=== PATIENT | male | born 1955 | race Two or more races ===

== ENCOUNTER 2023-04-27 12:05 | Emergency (ER) | payer OTHER ==
[~2023-04-27] VITALS: Ht 160 cm; Wt 67.4 kg
[2023-04-27] MEDS ORDERED: ONDANSETRON ODT 4 MG TAB PO ONE (12:45)
[2023-04-27 12:57] LABS: Urine WBC None Seen /hpf (0 - 3)
[2023-04-27 13:00] VITALS: BP 142/75; PULSE 66; RESP 17; TEMP 98; O2SAT 100
[2023-04-27 13:10] LABS: Urine Bacteria NONE SEEN /hpf (None Seen); Urine Blood Negative /uL (Negative); Urine Clarity Clear (Clear); Urine Color Yellow (Yellow); Urine Protein, UAD Negative (Negative); Urine Specific Gravity 1.011 (1.001-1.035); Urine Urobilinogen Normal (Negative)
[2023-04-27 13:11] LABS: Basophils # (auto) 0 10 ^3/uL (0-0.2); Basophils % (auto) 0.2 % (0.0-2.0); Eosinophils # (auto) 0 10 ^3/uL (0-0.8); Eosinophils % (auto) 0.3 % (0.0-7.0); Hematocrit 45.7 % (41.0-53.0); Hemoglobin 15.5 g/dL (13.5-17.5); Lymphocytes # (auto) 1.2 10 ^3/uL (0.4-5.4); Lymphocytes % (auto) 11.3 % (10.0-50.0); Mean Corpuscular Hemoglobin 31.5 pg (28.0-32.0); Mean Corpuscular Hgb Conc. 33.9 g/dL (32.0-36.0); Monocytes # (auto) 0.6 10 ^3/uL (0-1.3); Monocytes % (auto) 5.7 % (0.0-12.0); Neutrophils # (auto) 8.7 10 ^3/uL (1.6-8.6); Neutrophils % (auto) 82.5 % (37.0-80.0); Red Blood Cells 4.92 10^6/uL (4.5-5.90); Red Cell Distribution Width 12.9 % (11.8-14.3); White Blood Cell 10.5 10^3/uL (4.4-10.8)
[2023-04-27 14:01] LABS: Alanine Aminotransferase 24 U/L (7-40); Albumin 4.1 g/dL (3.2-4.8); Alkaline Phosphatase 84 U/L (46-116); Anion Gap 7 (5-15); Aspartate Aminotransferase 21 U/L (13-40); BUN/Creatinine Ratio 12.4 (10.0-20.0); Bilirubin, Total 1.2 mg/dL (0.2-1.0); Blood Urea Nitrogen 13 mg/dL (9-23); Calcium 9.1 mg/dL (8.7-10.4); Carbon Dioxide 27 mmol/L (20-30); Chloride 103 mmol/L (98-107); Glucose 158 mg/dL (74-106); Lipase 37 U/L (12-53); Potassium 3.8 mmol/L (3.5-5.1); Sodium 137 mmol/L (136-145); Total Protein 6.9 g/dL (5.7-8.2)
[2023-04-27] MEDS ORDERED: ZOFR4T PO (16:34)
== END 2023-04-27 16:51 | disposition home or self-care (01) ==
LOC: ER 12:05
DX: B34.9 Viral infection, unspecified (principal); R11.0 Nausea; E78.5 Hyperlipidemia, unspecified
CPT/HCPCS: 36415; 74176; 80053; 81001; 83690; 85025; 99284; Q0162; 93005

== ENCOUNTER 2023-10-02 09:47 | Emergency (ER) | payer MEDICAID ==
[~2023-10-02] VITALS: Ht 167.6 cm; Wt 65.6 kg
[~2023-10-02 09:47] MED LIST: ZOFR4T PO
[2023-10-02] MEDS ORDERED: CEPH500C PO (10:33)
[2023-10-02 10:36] VITALS: BP 148/57; PULSE 65; RESP 16; TEMP 97.8; O2SAT 98
== END 2023-10-02 10:54 | disposition home or self-care (01) ==
LOC: ER 09:47
DX: S30.812A Abrasion of penis, initial encounter (principal); E78.5 Hyperlipidemia, unspecified; Z79.899 Other long term (current) drug therapy; W01.0XXA Fall on same level from slipping, tripping and stumbling without subsequent striking against object, initial encounter; Y93.89 Activity, other specified; Y92.89 Other specified places as the place of occurrence of the external cause; Y99.8 Other external cause status

== ENCOUNTER 2024-12-11 22:10 | Inpatient (IN) | payer MEDICAID ==
[~2024-12-11] VITALS: Ht 157.5 cm; Wt 61.1 kg
[~2024-12-11 22:10] MED LIST changes: +CEPH500C PO
--- NOTE | 2024-12-11 22:32 | ED.PDOC ---
History of Present Illness HPI Comments 69-year-old male presents with a chief complaint of chest pain. Patient states that his pain was localized to his sternal region, nonradiating, no alleviating factors, no exertion factors. Patient states that the pain has gone away since arriving to the ER. Patient states that he has not had a chest pain work up before and is anxious. Patient denies recent stress test. Chief Complaint: Chest Pain Time Seen by MD: 22:25 Primary Care Provider: NONE Reviewed Notes: Medications, Allergies Allergies: Coded Allergies: No Known Drug Allergy (Verified Allergy, Unknown, 04/27/23) Home Meds Active Scripts Cephalexin Monohydrate (Cephalexin) 500 Mg Cap, 1 CAP PO TID, #30 CAP Prov:HERNANDO PHILIPPE 10/02/23 Ondansetron Odt 4MG Tab (ZOFRAN PO) 4 Mg Tb, 4 MG PO Q8HP PRN for 5 Days, #15 TAB ODT TAB-DISSOLVE IN MOUTH, THEN SWALLOW Prov:CARA VELIZ MD 04/27/23 Information Source: Patient Mode of Arrival: Ambulatory Severity: Moderate Timing: Hours Duration: Intermittent Prehospital treatment: None Past Medical History PAST MEDICAL HISTORY: High Lipids Surgical History: Denies all surgeries Family History Family History: Reviewed,noncontributory to illness, Family hx of DM Social History Smoker: Non-Smoker Alcohol: Denies ETOH Use Drugs: Denies Drug Use Lives In: Home Constitutional: denies: chills, diaphoresis, fatigue, fever, malaise, sweats, weakness, others EENTM: denies: blurred vision, double vision, ear bleeding, ear discharge, ear drainage, ear pain, ear ringing, eye pain, eye redness, hearing loss, mouth pain, mouth swelling, nasal discharge, nose bleeding, nose congestion, nose pain, photophobia, tearing, throat pain, throat swelling, voice changes, others Respiratory: denies: cough, hemoptysis, orthopnea, SOB at rest, shortness of breath, SOB with excertion, stridor, wheezing, others Cardiovascular: reports: chest pain; denies: dizzy spells, diaphoresis, Dyspnea on exertion, edema, irregular heart beat, left arm pain, lightheadedness, palpitations, PND, syncope, others Gastrointestinal: denies: abdomen distended, abdominal pain, blood streaked bowels, constipated, diarrhea, dysphagia, difficulty swallowing, hematemesis, melena, nausea, poor appetite, poor fluid intake, rectal bleeding, rectal pain, vomiting, others Genitourinary: denies: burning, dysuria, flank pain, frequency, hematuria, incontinence, penile discharge, penile sore, pain, testicle pain, testicle swelling, urgency, others Neurological: denies: dizziness, fainting, headache, left sided numbness, left sided weakness, numbness, paresthesia, pre-existing deficit, right sided numbness, right sided weakness, seizure, speech problems, tingling, tremors, weakness, others Musculoskeletal: denies: back pain, gout, joint pain, joint swelling, muscle pain, muscle stiffness, neck pain, others Integumetry: denies: bruises, change in color, change in hair/nails, dryness, laceration, lesions, lumps, rash, wounds, others Allergic/Immunocompromised: denies: Difficulty Healing, Frequent Infections, Hives, Itching, others Hematologic/Lymphatic: denies: anemia, blood clots, easy bleeding, easy bruising, swollen glands, others Endocrine: denies: excessive hunger, excessive sweating, excessive thirst, excessive urination, flushing, intolerance to cold, intolerance to heat, unexplained weight gain, unexplained weight loss, others Psychiatric: denies: anxiety, bipolar disorder, depression, hopeless, panic disorder, schizophrenia, sleepless, suicidal, others All Other Systems: Reviewed and Negative Physical Exam General Appearance: No Apparent Distress, Normal HEENT: Normal ENT Inspection, Pharynx Normal, TMs Normal Neck: Full Range of Motion, Non-Tender, Normal, Normal Inspection Respiratory: Chest Non-Tender, Lungs Clear, No Accessory Muscle Use, No Respiratory Distress, Normal Breath Sounds Cardiovascular: No Edema, No JVD, No Murmur, No Gallop, Normal Peripheral Pulses, Regular Rate/Rhythm Breast Exam: Deferred Gastrointestinal: No Organomegaly, Non Tender, No Pulsatile Mass, Normal Bowel Sounds, Soft Genitalia: Deferred Pelvic: Deferred Rectal: Deferred Extremities: No calf tenderness, Normal capillary refill, Normal inspection, Normal range of motion, Non-tender, No pedal edema Musculoskeletal : Apperance: Normal Neurologic: Alert, courtesy clerk II-XII nml as Tested, No Motor Deficits, Normal Affect, Normal Mood, No Sensory Deficits Cerebellar Function: Normal Reflexes: Normal Skin: Dry, Normal Color, Warm Lymphatic: No Adenopathy Was a procedure done? Was a procedure done?: No Differential Dx Considerations may include: ACS, gastritis, 2, viral syndrome, musculoskeletal strain X-Ray, Labs, Meds, VS Vital Signs Date Time Temp Pulse Resp B/P (MAP) Pulse Ox O2 Delivery O2 Flow Rate FiO2 12/11/24 22:18 65 12/11/24 22:10 98.2 72 18 133/59 (83) 97 98.2 Lab Test 12/11/24 23:25 12/11/24 22:24 Range/Units Troponin I High Sensitivity Pending 3 L </=54 ng/L White Blood Count 5.3 4.4-10.8 10^3/uL Red Blood Count 4.73 4.5-5.90 10^6/uL Hemoglobin 14.6 13.5-17.5 g/dL Hematocrit 43.5 41.0-53.0 % Mean Corpuscular Volume 92.0 80.0-100.0 fL Mean Corpuscular Hemoglobin 30.9 28.0-32.0 pg Mean Corpuscular Hemoglobin Concent 33.6 32.0-36.0 g/dL Red Cell Distribution Width 13.6 11.8-14.3 % Platelet Count 157 140-450 10^3/uL Mean Platelet Volume 9.0 6.9-10.8 fL Neutrophils (%) (Auto) 36.3 L 37.0-80.0 % Lymphocytes (%) (Auto) 49.5 10.0-50.0 % Monocytes (%) (Auto) 11.6 0.0-12.0 % Eosinophils (%) (Auto) 2.0 0.0-7.0 % Basophils (%) (Auto) 0.6 0.0-2.0 % Neutrophils # (Auto) 1.9 1.6-8.6 10 ^3/uL Lymphocytes # (Auto) 2.6 0.4-5.4 10 ^3/uL Monocytes # (Auto) 0.6 0-1.3 10 ^3/uL Eosinophils # (Auto) 0.1 0-0.8 10 ^3/uL Basophils # (Auto) 0 0-0.2 10 ^3/uL Nucleated Red Blood Cells 0.1 % Sodium Level 143 136-145 mmol/L Potassium Level 4.0 3.5-5.1 mmol/L Chloride Level 108 H 98-107 mmol/L Carbon Dioxide Level 26 20-31 mmol/L Anion Gap 9 5-15 Blood Urea Nitrogen 15 9-23 mg/dL Creatinine 0.93 0.700-1.30 mg/dL Glomerular Filtration Rate Calc 89 >90 mL/min BUN/Creatinine Ratio 16.1 10.0-20.0 Serum Glucose 155 H 74-106 mg/dL Calcium Level 9.4 8.7-10.4 mg/dL Time of 1ST Reevaluation: 22:55 Reevaluation 1ST: Unchanged Patient Education/Counseling: Diagnosis, Treatment Family Education/Counseling: No Family Present Departure 1 Departure Time of Disposition: 23:49 (Patient presented with chest pain that was concerning for possible STEMI, ACS, PE, Pneumonia, Muscle Strain, COPD, Dissection. Data: 1. I ordered and reviewed the result of at least 3 labs including a CBC, BMP, and Troponin. 2. I independently interpreted the following tests: EKG which shows normal sinus and Chest X-ray which shows benign chest.Risk:This patient has a high risk of morbidity due to further diagnostic testing or treatment and may suffer from an acute cardiac or respiratory disorder. Workup reveals concern for ACS and patient should be admitted for further workup and possible expert consultation. ) Impression: Primary Impression: Acute chest pain Disposition: 09 ADMITTED INPATIENT Admit to: Med Surg Condition: Serious Critical Care Note Critical Care Time?: Yes Critical care comment: Acute chest pain Authorized and Performed by: Danae Jenkins MD Total critical care time: Approximately 39 minutes Due to a high probability of clinically significant, life threatening deter ioration, the patient required my highest level of preparedness to intervene emergently and I personally spent this critical care time directly and personally managing the patient. This critical care time included obtaining a history; examining the patient; pulse oximetry; ordering and review of studies; arranging urgent treatment with development of a management plan; evaluation of patient's response to treatment; frequent reassessment; and, discussions with other providers. This critical care time was performed to assess and manage the high probability of imminent, life-threatening deterioration that could result in multi-organ fa ilure. It was exclusive of separately billable procedures and treating other patients and teaching time. Please see my other sections and the rest of the note for further information on patient assessment and treatment. Stability Stability form required: No I personally scribed for DANAE JENKINS MD ([email or web address]) on 12/11/24 at 22:32. Electronically submitted by Kenji Valdes ([email or web address]). DANAE JENKINS MD December 11, 2024 22:32
[2024-12-11 22:35] LABS: Basophils # (auto) 0 10 ^3/uL (0-0.2); Basophils % (auto) 0.6 % (0.0-2.0); Eosinophils # (auto) 0.1 10 ^3/uL (0-0.8); Hematocrit 43.5 % (41.0-53.0); Hemoglobin 14.6 g/dL (13.5-17.5); Lymphocytes # (auto) 2.6 10 ^3/uL (0.4-5.4); Lymphocytes % (auto) 49.5 % (10.0-50.0); Mean Corpuscular Hemoglobin 30.9 pg (28.0-32.0); Mean Corpuscular Hgb Conc. 33.6 g/dL (32.0-36.0); Monocytes # (auto) 0.6 10 ^3/uL (0-1.3); Monocytes % (auto) 11.6 % (0.0-12.0); Neutrophils # (auto) 1.9 10 ^3/uL (1.6-8.6); Neutrophils % (auto) 36.3 % (37.0-80.0); Nucleated Red Blood Cells % 0.1 %; Platelet Count (auto) 157 10^3/uL (140-450); Red Blood Cells 4.73 10^6/uL (4.5-5.90); Red Cell Distribution Width 13.6 % (11.8-14.3); White Blood Cell 5.3 10^3/uL (4.4-10.8)
[2024-12-11 22:46] LABS: Sodium 143 mmol/L (136-145)
[2024-12-11 22:47] LABS: Anion Gap 9 (5-15); Calcium 9.4 mg/dL (8.7-10.4); Carbon Dioxide 26 mmol/L (20-31)
[2024-12-11 22:52] LABS: BUN/Creatinine Ratio 16.1 (10.0-20.0); Blood Urea Nitrogen 15 mg/dL (9-23)
[2024-12-11 23:12] LABS: Chloride 108 mmol/L (98-107); Glucose 155 mg/dL (74-106)
--- NOTE | 2024-12-12 | DVH ---
CHEST RADIOGRAPH Indication: chest pain Technique: Single frontal view of the chest was obtained COMPARISON: None FINDINGS: Lines and Tubes: None Lungs: No pulmonary infiltrates or edema. Possible small calcified granuloma in left mid lung. Pleura: No effusion. No pneumothorax. Cardiomediastinal contours: Unremarkable IMPRESSION: No acute disease.
[2024-12-12] MEDS ORDERED: MORPHINE SULFATE INJ 2 MG/ml SYRG IV PRN (00:15)
[2024-12-12] MEDS ORDERED: ONDANSETRON HCL 4 MG/2 ML VIAL IV PRN (00:15)
[2024-12-12] MEDS ORDERED: ACETAMINOPHEN 325 MG TAB PO PRN (00:15)
[2024-12-12] MEDS ORDERED: NITROGLYCERIN 0.4 MG SL TAB SL PRN (00:15)
[2024-12-12 02:04] LABS: LDL Cholesterol 61 mg/dL (< 100); Triglycerides 91 mg/dL (< 150)
[2024-12-12 02:06] LABS: Cholesterol 126 mg/dL (< 200); HDL Cholesterol 51 mg/dL (40-59)
[2024-12-12 03:16] VITALS: BP 148/76; PULSE 56; RESP 16; TEMP 97.9; O2SAT 98; O2SAT 99
--- NOTE | 2024-12-12 05:08 | DVHHP2 ---
History of Present Illness Reason for Visit: Chest pain History of Present Illness 69-year-old male presents for evaluation of chest pain. Patient reports a one day history of sharp substernal chest pain that is nonradiating. He states the episode lasted until he arrived to the emergency department. Currently he denies shortness or breath, chest pain or palpitations. Past Medical History Dyslipidemia Past Surgical History Denies Family History Noncontributory Smoke: No ALCOHOL: none Drugs: None Lives: with Family Review of Systems Review of Systems Review of systems are currently negative otherwise addressed in HPI. Allergies: Coded Allergies: No Known Drug Allergy (Verified Allergy, Unknown, 04/27/23) Medications Current Medications Medications Dose Ordered Sig/Lubna Route Start Time Stop Time Status Last Admin Dose Admin Atorvastatin Calcium 40 mg HS PO 12/12/24 22:00 Aspirin 81 mg DAILY PO 12/12/24 10:00 Ondansetron HCl 4 mg Q4HP PRN IV 12/12/24 00:15 Enoxaparin Sodium 40 mg DAILY SC 12/12/24 10:00 Acetaminophen 650 mg Q6HP PRN PO 12/12/24 00:15 Nitroglycerin 0.4 mg Q5MINP PRN SL 12/12/24 00:15 Morphine Sulfate 2 mg Q30M PRN IV 12/12/24 00:15 Exam Vital Signs Vital Signs Date Time Temp Pulse Resp B/P (MAP) Pulse Ox O2 Delivery O2 Flow Rate FiO2 12/12/24 03:16 97.9 56 16 148/76 (100) 99 97.9 12/12/24 03:16 Room Air* 0 21 Exam Gen: 69-year-old male in mild distress. Skin: Warm, dry, normal color and texture, no rash. HEENT: Normocephalic atraumatic, mucous membranes moist and pink. Neck: Cervical and supraclavicular nodes normal without enlargement, trachea is midline, thyroid gland is normal without masses. Pulmonary: Clear to auscultation and percussion bilaterally. Cardiac: Regular rate and rhythm. No murmur Abdomen: Soft, nontender, nondistended, bowel sounds present all 4 quadrants, no guarding, no rigidity, no organomegaly. Extremities: No cyanosis, clubbing, no edema Neuro: Cranial nerves II through XII grossly intact, normal affect and speech, no focal motor deficits. Labs/Xrays ORDERING PHYSICIAN: DANAE JENKINS MD PROCEDURE(s): CXRP - CHEST PORTABLE REASON: chest pain ORDER NUMBER(s): [id number], ACCESSION NUMBER(s): [id number] CHEST RADIOGRAPH Indication: chest pain Technique: Single frontal view of the chest was obtained COMPARISON: None FINDINGS: Lines and Tubes: None Lungs: No pulmonary infiltrates or edema. Possible small calcified granuloma in left mid lung. Pleura: No effusion. No pneumothorax. Cardiomediastinal contours: Unremarkable IMPRESSION: No acute disease. Labs Test 12/12/24 01:09 12/11/24 23:25 12/11/24 22:24 Range/Units Troponin I High Sensitivity 4 </=54 ng/L Triglycerides Level 91 < 150 mg/dL Cholesterol Level 126 < 200 mg/dL LDL Cholesterol 61 < 100 mg/dL HDL Cholesterol 51 40-59 mg/dL Thyroid Stimulating Hormone (TSH) 1.38 0.55-4.78 uIU/mL White Blood Count 5.3 4.4-10.8 10^3/uL Red Blood Count 4.73 4.5-5.90 10^6/uL Hemoglobin 14.6 13.5-17.5 g/dL Hematocrit 43.5 41.0-53.0 % Mean Corpuscular Volume 92.0 80.0-100.0 fL Mean Corpuscular Hemoglobin 30.9 28.0-32.0 pg Mean Corpuscular Hemoglobin Concent 33.6 32.0-36.0 g/dL Red Cell Distribution Width 13.6 11.8-14.3 % Platelet Count 157 140-450 10^3/uL Mean Platelet Volume 9.0 6.9-10.8 fL Neutrophils (%) (Auto) 36.3 L 37.0-80.0 % Lymphocytes (%) (Auto) 49.5 10.0-50.0 % Monocytes (%) (Auto) 11.6 0.0-12.0 % Eosinophils (%) (Auto) 2.0 0.0-7.0 % Basophils (%) (Auto) 0.6 0.0-2.0 % Neutrophils # (Auto) 1.9 1.6-8.6 10 ^3/uL Lymphocytes # (Auto) 2.6 0.4-5.4 10 ^3/uL Monocytes # (Auto) 0.6 0-1.3 10 ^3/uL Eosinophils # (Auto) 0.1 0-0.8 10 ^3/uL Basophils # (Auto) 0 0-0.2 10 ^3/uL Nucleated Red Blood Cells 0.1 % Sodium Level 143 136-145 mmol/L Potassium Level 4.0 3.5-5.1 mmol/L Chloride Level 108 H 98-107 mmol/L Carbon Dioxide Level 26 20-31 mmol/L Anion Gap 9 5-15 Blood Urea Nitrogen 15 9-23 mg/dL Creatinine 0.93 0.700-1.30 mg/dL Glomerular Filtration Rate Calc 89 >90 mL/min BUN/Creatinine Ratio 16.1 10.0-20.0 Serum Glucose 155 H 74-106 mg/dL Hemoglobin A1c 6.0 H <5.7 % A1C Calcium Level 9.4 8.7-10.4 mg/dL Assessment/Plan Assessment/Plan Assessment Chest pain rule out ACS Plan Admit the patient to telemetry to the hospitalist Echocardiogram pending Resume home medications Continue treatment per orders. Plan discussed with: Patient My Orders Orders - JAYLEN GRAJEDA AGACNFredy Procedure Category Date Status Time Atorvastatin (Lipitor) PHA 12/12/24 In Process 22:00 Aspirin Tablet PHA 12/12/24 In Process 10:00 Admit ADMIT 12/12/24 Transmitted 00:13 Ondansetron Hcl PHA 12/12/24 In Process (Zofran) 00:15 Enoxaparin Sodium PHA 12/12/24 In Process (Lovenox) 10:00 Cardiac DIET 12/12/24 Transmitted Diet-2gna,Lofat,Lochol Breakfast Echo 2d Mode Cardiac US 12/12/24 Logged DOP 00:13 Condition: Fair SANJAY 12/12/24 In Process 00:13 Acetaminophen Tablet PHA 12/12/24 In Process (Tylenol Tablet) 00:15 Bedrest With Bathroom SANJAY 12/12/24 In Process Privileg 00:13 Nitroglycerin PHA 12/12/24 In Process Sublingual (Ntrostat 00:15 Morphine Sulfate PHA 12/12/24 In Process Injection 00:15 Stat Ekg For Chest SANJAY 12/12/24 In Process Pain 00:13 Notify Of Changes SANJAY 12/12/24 In Process From Base 00:13 Drawing Kiln Supervisor For [facility] 12/12/24 In Process 24 Hours 00:13 Emergency Dysrhythmia [facility] 12/12/24 In Process Protocol 00:13 Rhythm Strips Once [facility] 12/12/24 In Process Every Shift 00:13 Oxygen By Nasal RT 12/12/24 Transmitted Cannula 00:13 Date of Service: December 12, 2024 Billing Provider: JAYLEN GRAJEDA Common Visit Codes: [id number] INP/OBS CARE (MOD) JAYLEN GRAJEDA December 12, 2024 05:08
[2024-12-12 08:00] VITALS: PULSE 43; PULSE 47; RESP 18; O2SAT 98
[2024-12-12 08:58] VITALS: BP 107/63; PULSE 47; RESP 19; TEMP 96.9; O2SAT 99
[2024-12-12] MEDS: ASPirin 81 mg TAB PO SCH (09:53)
[2024-12-12] MEDS: ENOXAPARIN SOD 40 MG/0.4 ML SYRINGE SC SCH (09:53)
--- NOTE | 2024-12-12 11:23 | DVHSR ---
APPROVED REPORT EXAM: Two-dimensional and M-mode echocardiogram with Doppler and color Doppler. Blood Pressure: 148/76 mmHg INDICATION EF RISK FACTORS Height: 5'2", Weight: 134 DIMENSIONS LVDd5.0 (3.8-5.7cm)LA (2D)3.9 (1.9-4.0cm)Aortic Root3.4 (2.0-3.7cm) LVDs3.1 (2.5-4.0cm)LA (MM) (1.9-4.0cm)Aortic Cusp Exc2.2 (1.5-2.0cm) EF (%) 67.0 (55-70%)Rt. Atrium4.5 (1.9-4.0cm)Asc. Aorta3.1 cm IVSd0.8 (0.7-1.1cm)RV (D)3.7 (1.8-2.4cm) PWd0.9 (0.7-1.1cm) Mitral Valve MitralMitral Stenosis E wave0.68m/sMV Mean GR.mmHg A wave0.52m/sMV Peak GR.mmHg E/A ratio1.32D MVAcm2 DECEL [id number] 1/2 Timems Aortic Valve Aortic ValveAortic Stenosis V10.88m/Nahid Mean GR.2mmHg V21.07m/Nahid Peak GR.5mmHg LVOT Diameter2.3 (1.8-2.4cm)Doppler AVA3.42cm2 Pulmonic Valve V21.00m/s Conclusion Left ventricle: Left ventricle was normal sized with normal systolic function. The LVEF was 67%. T here was no wall motion abnormality. Diastolic function of left ventricle was normal. Right ventricle was normal sized with normal systolic function. Both atria were normal sized. Aortic valve: Aortic valve was trileaflet. There was no aortic insufficiency/stenosis. There was tr lynn mitral/tricuspid regurgitation. There was trace pulmonary valve insufficiency. As there was no good tricuspid regurgitation jet, right ventricular systolic pressure could not be es timated. There was no echocardiographic evidence for pulmonary hypertension. There was no pericardial effusion. IVC was normal sized with normal respiratory variation.
[2024-12-12 13:00] VITALS: BP 119/71; PULSE 51; RESP 16; TEMP 98; O2SAT 98
[2024-12-12] MEDS ORDERED: ATOR20TA50 PO (15:20)
--- NOTE | 2024-12-12 16:25 | DVHDSRES ---
Discharge Summary Date of Admission Resident Creating Document: NEO DE LA FUENTE RESIDENT December 12, 2024 at 00:13 Date of Discharge: December 12, 2024 Admitting Diagnosis Chest pain rule out ACS Wounds: none Labs/Diagnostic Data: Laboratory Results Test 12/12/24 01:09 12/11/24 23:25 12/11/24 22:24 Troponin I High Sensitivity 4 ng/L (</=54) Triglycerides Level 91 mg/dL (< 150) Cholesterol Level 126 mg/dL (< 200) LDL Cholesterol 61 mg/dL (< 100) HDL Cholesterol 51 mg/dL (40-59) Thyroid Stimulating Hormone (TSH) 1.38 uIU/mL (0.55-4.78) White Blood Count 5.3 10^3/uL (4.4-10.8) Red Blood Count 4.73 10^6/uL (4.5-5.90) Hemoglobin 14.6 g/dL (13.5-17.5) Hematocrit 43.5 % (41.0-53.0) Mean Corpuscular Volume 92.0 fL (80.0-100.0) Mean Corpuscular Hemoglobin 30.9 pg (28.0-32.0) Mean Corpuscular Hemoglobin Concent 33.6 g/dL (32.0-36.0) Red Cell Distribution Width 13.6 % (11.8-14.3) Platelet Count 157 10^3/uL (140-450) Mean Platelet Volume 9.0 fL (6.9-10.8) Neutrophils (%) (Auto) 36.3 % (37.0-80.0) Lymphocytes (%) (Auto) 49.5 % (10.0-50.0) Monocytes (%) (Auto) 11.6 % (0.0-12.0) Eosinophils (%) (Auto) 2.0 % (0.0-7.0) Basophils (%) (Auto) 0.6 % (0.0-2.0) Neutrophils # (Auto) 1.9 10 ^3/uL (1.6-8.6) Lymphocytes # (Auto) 2.6 10 ^3/uL (0.4-5.4) Monocytes # (Auto) 0.6 10 ^3/uL (0-1.3) Eosinophils # (Auto) 0.1 10 ^3/uL (0-0.8) Basophils # (Auto) 0 10 ^3/uL (0-0.2) Nucleated Red Blood Cells 0.1 % Sodium Level 143 mmol/L (136-145) Potassium Level 4.0 mmol/L (3.5-5.1) Chloride Level 108 mmol/L (98-107) Carbon Dioxide Level 26 mmol/L (20-31) Anion Gap 9 (5-15) Blood Urea Nitrogen 15 mg/dL (9-23) Creatinine 0.93 mg/dL (0.700-1.30) Glomerular Filtration Rate Calc 89 mL/min (>90) BUN/Creatinine Ratio 16.1 (10.0-20.0) Serum Glucose 155 mg/dL (74-106) Hemoglobin A1c 6.0 % A1C (<5.7) Calcium Level 9.4 mg/dL (8.7-10.4) Other Laboratory Tests 12/11/24 22:24 Brief Hx & Hospital Course: The patient is a 69-year-old male with a past medical history of dyslipidemia with a due to the ER with a chief complaint of chest pain which started a few hours ago while the patient was at [employer]. The patient reported left chest to substernal chest pressure, nonradiating, occurred while at rest, no aggravating or relieving factors following with the patient came to the ER for further evaluation. The patient was not given any medication in the year lives chest pressure improved on its own. Initial 12 lead EKG was sinus rhythm with no ST segment or T-wave changes. Troponin levels were within normal limits. The patient does not have any history of smoking, diabetes, high blood pressure, no family history of heart disease or [place]. the patient was found to have sinus bradycardia on the tele monitor but it did not to food of any episode of dizziness or loss of consciousness, no dizziness when the patient gets up and walks from the bed. TSH levels with a normal limits. The patient's lipid profile huff with a normal limits with the hospital what he reported to be taking statin at home. Echocardiogram was done with showed LVEF normal with normal systolic function, normal right ventricle with normal systolic function, normal valves. HBa1c level was 6% which hold of the prediabetic range and the patient was counseled on diet modification and lifestyle modification. Discharge plan Patient discharged in stable condition to home Follow up with the PCP in 1 week Continue on atorvastatin 40 mg daily Consults/Reason for consult none Operations or Procedures none Condition at Discharge: Good Final Diagnosis/Problems List Acute chest pain likely costochondritis ACS ruled out Asymptomatic sinus bradycardia PreDiabetes Discharge Disposition: Home Discharge Instruct/Medications Diet: Consistent carbohydrate Activity: No Restrictions, As Tolerated Follow Up/Referral: Follow up with the PCP in one week Medications: as per EMR Discharge Statement: "Patient was advised to return to the ER or call 911 if any headaches, dizziness, shortness of breath, chest pain, abdominal pain, bleeding, fevers, or worsening of medical condition. Patient was counseled about treatment plan, medications, possible side effects, patientverbalized understanding. All questions were answered to the best of my ability. This discharge took greater then 30 minutes in planning, reviewing documentation, counseling the patient, and discussing with other team members." ASSESSMENT ASSESSMENT Assessment Acute chest pain likely costochondritis ACS ruled out Asymptomatic sinus bradycardia PreDiabetes Date of Service: December 12, 2024 Billing Provider: BALBIR BLANK MD Common Visit Codes: [id number]-JZR/OBS DISCH DAY >30min NEO DE LA FUENTE RESIDENT December 12, 2024 16:25 BALBIR BLANK MD December 13, 2024 07:32
[2024-12-12 17:00] VITALS: BP 107/56; PULSE 43; RESP 16; TEMP 97.8; O2SAT 97
[2024-12-12] MEDS ORDERED: ATORVASTATIN 20 MG TAB PO SCH (22:00)
--- NOTE | 2024-12-13 13:33 | ECG ---
[facility] Test Date: 2024-12-11 Test Time: 22:18:27 Pat Name: DELL PIERSONRADHANasraDepartment: ER Room: 0245T Gender: M Design Manager: GUS : [id number] Requested By: DANAE JENKINS Order Number: [id number] Reading MD: Measurements Intervals [place] Rate: 65 P: 39 VA: 142 QRS: -36 QRSD: 97 T: 28 QT: 402 QTc: 418 Interpretive Statements Sinus rhythm Left axis deviation Please click the below link to view image of tracing.
== END 2024-12-12 19:20 | disposition home or self-care (01) | DRG 203 ==
LOC: ER 22:10 → OVERFLOW 12-12 00:13 → TELE-EAST 12-12 03:15
PROVIDERS: ADMIT Nurse Practitioner; ATTEND Nurse Practitioner
DX: M94.0 Chondrocostal junction syndrome [Tietze] (principal); E78.5 Hyperlipidemia, unspecified; R73.03 Prediabetes; Z79.2 Long term (current) use of antibiotics; Z79.899 Other long term (current) drug therapy; R00.1 Bradycardia, unspecified
CPT/HCPCS: 36415; 71045; 80048; 80061; 83036; 84443; 84484; 85025; 93306; 99291; G0378

== ENCOUNTER 2025-01-12 13:15 | Emergency (ER) | payer MEDICAID ==
[~2025-01-12] VITALS: Ht 157.5 cm; Wt 65.0 kg
[~2025-01-12 13:15] MED LIST changes: +ATOR20TA50 PO; -CEPH500C PO
--- NOTE | 2025-01-12 13:27 | ED.PDOC ---
Musculoskeletal HPI Comments This is a 69 year old male presenting to the ED with chief complaint of left leg pain. Patient reports that while at home 5 days ago, he had tripped and fell, hitting a metal object on his left foreleg in the process. Patient relays that the pain has worsened over time. Patient denies any numbness, weakness, tingling, or further injury. Time Seen by MD: 13:24 Primary Care Provider: NONE Reviewed Notes: Nurses Notes, Medications, Allergies Allergies: Coded Allergies: No Known Drug Allergy (Verified Allergy, Unknown, 04/27/23) Home Meds Active Scripts Atorvastatin Calcium (ATORVASTATIN CALCIUM) 20 Mg Tab, 40 MG PO HS for 28 Days, #56 TAB Prov:NEO DE LA FUENTE RESIDENT 12/12/24 Ondansetron Odt 4MG Tab (ZOFRAN PO) 4 Mg Tb, 4 MG PO Q8HP PRN for 5 Days, #15 TAB ODT TAB-DISSOLVE IN MOUTH, THEN SWALLOW Prov:CARA VELIZ MD 04/27/23 Information Source: Patient Mode of Arrival: Ambulatory Location: Left Extremity Location: Tibia Timing: Days Prehospital treatment: None Severity: Moderate Able to Move Extremity: Yes Bear Weight: Fully Pain: Moderate Mechanism: Blunt Trauma Circumstances: Accident, Tripped Onset of Symptoms: After Trauma Symptoms: Pain DVT Risk Factors: NONE Last Tetanus: Unknown Past Medical History PAST MEDICAL HISTORY: High Lipids Surgical History: Denies all surgeries Family History Family History: Reviewed,noncontributory to illness, Family hx of DM Social History Smoker: Non-Smoker Alcohol: Denies ETOH Use Drugs: Denies Drug Use Lives In: Home Constitutional: denies: chills, diaphoresis, fatigue, fever, malaise, sweats, weakness, others EENTM: denies: blurred vision, double vision, ear bleeding, ear discharge, ear drainage, ear pain, ear ringing, eye pain, eye redness, hearing loss, mouth pain, mouth swelling, nasal discharge, nose bleeding, nose congestion, nose pain, photophobia, tearing, throat pain, throat swelling, voice changes, others Respiratory: denies: cough, hemoptysis, orthopnea, SOB at rest, shortness of breath, SOB with excertion, stridor, wheezing, others Cardiovascular: denies: chest pain, dizzy spells, diaphoresis, Dyspnea on exertion, edema, irregular heart beat, left arm pain, lightheadedness, palpitations, PND, syncope, others Gastrointestinal: denies: abdomen distended, abdominal pain, blood streaked bowels, constipated, diarrhea, dysphagia, difficulty swallowing, hematemesis, melena, nausea, poor appetite, poor fluid intake, rectal bleeding, rectal pain, vomiting, others Genitourinary: denies: burning, dysuria, flank pain, frequency, hematuria, incontinence, penile discharge, penile sore, pain, testicle pain, testicle swelling, urgency, others Neurological: denies: dizziness, fainting, headache, left sided numbness, left sided weakness, numbness, paresthesia, pre-existing deficit, right sided numbness, right sided weakness, seizure, speech problems, tingling, tremors, weakness, others Musculoskeletal: reports: others (Left foreleg injury/pain); denies: back pain, gout, joint pain, joint swelling, muscle pain, muscle stiffness, neck pain Integumetry: denies: bruises, change in color, change in hair/nails, dryness, laceration, lesions, lumps, rash, wounds, others Allergic/Immunocompromised: denies: Difficulty Healing, Frequent Infections, Hives, Itching, others Hematologic/Lymphatic: denies: anemia, blood clots, easy bleeding, easy bruising, swollen glands, others Endocrine: denies: excessive hunger, excessive sweating, excessive thirst, excessive urination, flushing, intolerance to cold, intolerance to heat, unexplained weight gain, unexplained weight loss, others Psychiatric: denies: anxiety, bipolar disorder, depression, hopeless, panic disorder, schizophrenia, sleepless, suicidal, others All Other Systems: Reviewed and Negative Physical Exam General Appearance: No Apparent Distress HEENT: Normal ENT Inspection, Pharynx Normal, TMs Normal Neck: Full Range of Motion, Non-Tender, Normal, Normal Inspection Respiratory: Chest Non-Tender, Lungs Clear, No Accessory Muscle Use, No Respiratory Distress, Normal Breath Sounds Cardiovascular: No Edema, No JVD, No Murmur, No Gallop, Normal Peripheral Pulses, Regular Rate/Rhythm Breast Exam: Deferred Gastrointestinal: No Organomegaly, Non Tender, No Pulsatile Mass, Normal Bowel Sounds, Soft Genitalia: Deferred Pelvic: Deferred Rectal: Deferred Extremities: No calf tenderness, Normal capillary refill, No pedal edema Musculoskeletal : Location: Left Extremity Location: Tibia Apperance: Limited ROM, Tenderness: Moderate Neurologic: Alert, motorcoach driver II-XII nml as Tested, No Motor Deficits, Normal Affect, Normal Mood, No Sensory Deficits Cerebellar Function: Normal Reflexes: Normal Skin: Dry, Normal Color, Warm Lymphatic: No Adenopathy Was a procedure done? Was a procedure done?: No Differential Diagnosis EXT Differential Diagnosis: Fracture, Sprain, Contusion, Strain X-Ray, Labs, Meds, VS Vital Signs Date Time Temp Pulse Resp B/P (MAP) Pulse Ox O2 Delivery O2 Flow Rate FiO2 01/12/25 13:27 97.0 71 20 144/86 (105) 96 97.0 X-ray of the left tib-fib is negative for any fracture The patient is being discharged and will follow up with the primary care doctor The patient will return to the emergency department's condition worsens. Images Reviewed?: Images reviewed and evaluated by me Time of 1ST Reevaluation: 14:20 Reevaluation 1ST: Improved Patient Education/Counseling: Diagnosis, Treatment, Prognosis, Need For Follow Up Family Education/Counseling: No Family Present Departure 1 Departure Time of Disposition: 14:20 Impression: Primary Impression: Contusion of left leg Qualified Codes: S80.12XA - Contusion of left lower leg, initial encounter Disposition: HOME / SELF CARE / HOMELESS Condition: Fair Discharged With: Self Critical Care Note Critical Care Time?: No Stability Stability form required: No Heart Score Heart Score: Heart Score Response (Comments) Value History N/A 0 EKG N/A 0 Age N/A 0 Risk Factors N/A 0 Troponin N/A 0 Total 0 I personally scribed for CARA VELIZ MD ([email or web address]) on 01/12/25 at 13:27. Electronically submitted by Kingsley Moies ([email or web address]). CARA VELIZ MD Jan 12, 2025 13:27
--- NOTE | 2025-01-12 14:01 | DVH ---
CLINICAL INDICATION: trauma TECHNIQUE: 2 XY L TIB FIB XRAY Comparison: None FINDINGS/IMPRESSION: : There is no evidence of acute fracture or dislocation. Soft tissues are unremarkable.
[2025-01-12 14:56] VITALS: BP 130/76; PULSE 59; RESP 20; TEMP 98.3; O2SAT 99
== END 2025-01-12 15:05 | disposition home or self-care (01) ==
LOC: ER 13:15
DX: S80.12XA Contusion of left lower leg, initial encounter (principal); W01.0XXA Fall on same level from slipping, tripping and stumbling without subsequent striking against object, initial encounter; Y93.89 Activity, other specified; Y92.89 Other specified places as the place of occurrence of the external cause; Y99.8 Other external cause status
CPT/HCPCS: 73590